=== PATIENT | female | born 1965 | race American Indian/Alaskan Native ===

== ENCOUNTER 2017-05-01 08:03 | Outpatient (CLI) | payer OTHER ==
--- NOTE | 2017-05-01 08:48 | Mammography Report ---
BILATERAL MAMMOGRAM: FINDINGS: The breasts are almost entirely fat (<25% glandular). No mass, distortion, suspicious calcification, or skin change is seen. No significant change compared to prior exams dating back to 2015. CAD was utilized. IMPRESSION: Negative mammogram. There is no mammographic evidence of malignancy. RECOMMENDATION: Follow-up per ACS guidelines. BI-RADS CATEGORY: 1 = Negative ACR BI-RADS MAMMOGRAPHIC CODES: 0 = Needs additional imaging evaluation; 1 = Negative; 2 = Benign; 3 = Probably benign; 4 = Suspicious; 5 = Malignant; 6 = Known biopsy-proven malignancy COMMENT: 1. Dense breast tissue, i.e., adenosis, fibrocystic changes, etc., may obscure an underlying neoplasm. 2. Approximately 10% of cancers are not detected with mammography. 3. A negative mammography report should not delay biopsy if a clinically suspicious mass is present. COMMENT: Patient follow-up letters are generated in [employer].
== END 2017-05-01 08:04 | disposition home or self-care (01) ==
LOC: MAMMO 08:03
PROVIDERS: ATTEND Family Medicine
DX: Z12.31 Encounter for screening mammogram for malignant neoplasm of breast (principal)
CPT/HCPCS: 77067; G0202

== ENCOUNTER 2018-05-01 16:35 | Observation (INO) | payer OTHER ==
[2018-05-01] MEDS ORDERED: PEPCID IV ONE (17:23)
[2018-05-01] MEDS ORDERED: BENTYL IM ONE (17:23)
[2018-05-01] MEDS ORDERED: TORADOL IV ONE (17:23)
[2018-05-01] MEDS ORDERED: NACL 0.9% 1000 ML 1,000 ML IV ONE (17:23)
--- NOTE | 2018-05-01 17:25 | Emergency Department Report ---
Blank Doc - Documentation Documentation: Patient is a 53-year-old -[place] female who is presenting status post colonoscopy with abdominal pain. Patient states that approximately an hour after she got home from her colonoscopy she started having intense pain in epigastrium. Patient states there is no fevers chills nausea vomiting. Patient states pain is 10 out of 10 and is a 7 out of 10 moment. Patient has midepigastric discomfort on palpation and decreased bowel sounds focused physical exam. Patie will have a CT of the abdomen to rule out perforation patient also be given medicine for symptomatic relief nt
[2018-05-01 18:01] LABS: Alanine Aminotransferase 41 units/L (7-56); Albumin 4.1 g/dL (3.9-5); BUN/Creatinine Ratio 14; Blood Urea Nitrogen 11 mg/dL (7-17); Hemolysis Index 42
--- NOTE | 2018-05-01 22:05 | Cat Scan Report ---
FINAL REPORT EXAM: CT ABDOMEN PELVIS W CON HISTORY: Epigastric pain TECHNIQUE: Following IV administration of 100 cc of Omnipaque 300 axial helical imaging was performed through the abdomen and pelvis with sagittal and coronal reformatted images obtained. Delayed axial images were also obtained through the abdomen and pelvis. Comparison: None FINDINGS: The lung bases are without infiltrate, pneumothorax or pleural fluid collection. The heart appears to be enlarged. There is mild intrahepatic and extrahepatic biliary dilatation. The common bowel duct measures approximately 7.8 millimeters in caliber. There are innumerable areas of low-attenuation throughout the liver. Some fit CT criteria for cysts. Others are too small to characterize. The spleen, pancreas, kidneys and adrenal glands are unremarkable in appearance. The gallbladder is moderately to markedly distended and contains numerous gallstones. There is a segment of narrowing of the mid portion of the gallbladder giving the gallbladder a somewhat bilobed appearance. The bowel is normal caliber. The appendix is normal caliber. There is no evidence of pneumoperitoneum or free fluid. The colon is largely air and fluid-filled with air-fluid levels. This may represent changes of an enteritis. There is no evidence of bowel wall thickening. The abdominal aorta is normal caliber. There is no evidence of pathologic intra-abdominal adenopathy by CT size criteria. The urinary bladder is moderately distended and unremarkable in appearance. The uterus and adnexa are unremarkable in appearance. The bony structures are notable for spondylitic change of the lumbar spine. IMPRESSION: 1. Mild intrahepatic and extrahepatic biliary dilatation. 2. The gallbladder is moderately to markedly distended, contains numerous gallstones with a segment of narrowing in the midportion of the gallbladder. 3. Numerous areas of low attenuation within the liver. Some fit CT criteria for cysts. Others are too small to characterize. Comparison with previous imaging studies is recommended. If no prior studies are available for comparison, MRI abdomen would be helpful for further evaluation of the above findings. 4. The heart appears to be enlarged. 5. Spondylitic change lumbar spine.
--- NOTE | 2018-05-01 22:38 | Emergency Department Report ---
ED Abdominal Pain HPI - General Chief Complaint: Abdominal Pain Stated Complaint: CHEST PAIN Time Seen by Provider: 05/01/18 17:19 Source: patient Mode of arrival: Wheelchair Limitations: No Limitations - History of Present Illness Initial Comments: 53-year-old -Citizen Of [place] female comes to the emergency room complaining of severe epigastric pain. Patient states that she had a colonoscopy this morning as scribe gestation and within a few hours she started to have severe epigastric pain. Patient denies any fever no chills but did have nausea no vomiting. Patient put that her pain with triage was 10 out of 10 now since having fluids and pain medicine as a 3 out of 10. Patient reports that she is moving her bowels and movement gas. She has no past medical history. MD Complaint: abdominal pain Severity scale (0 -10): 6 - Related Data Allergies Allergy/AdvReac Type Severity Reaction Status Date / Time cefprozil [From Cefzil] Allergy Rash Unverified 03/10/15 09:06 ED Review of Systems ROS: Stated complaint: CHEST PAIN Other details as noted in HPI ED Past Medical Hx - Past Medical History Previous Medical History?: No - Surgical History Past Surgical History?: No - Social History Smoking Status: Never Smoker Substance Use Type: None ED Physical Exam - General Limitations: No Limitations General appearance: alert, in no apparent distress - Head Head exam: Present: atraumatic, normocephalic - Eye Eye exam: Present: normal appearance - ENT ENT exam: Present: mucous membranes moist - Neck Neck exam: Present: normal inspection, full ROM - Respiratory Respiratory exam: Present: normal lung sounds bilaterally. Absent: respiratory distress - Cardiovascular Cardiovascular Exam: Present: regular rate, normal rhythm. Absent: systolic murmur, diastolic murmur, rubs, gallop - GI/Abdominal GI/Abdominal exam: Present: soft, tenderness, guarding. Absent: distended - Extremities Exam Extremities exam: Present: normal inspection, full ROM - Neurological Exam Neurological exam: Present: alert, oriented X3 - Psychiatric Psychiatric exam: Present: normal affect, normal mood - Skin Skin exam: Present: warm, dry, intact, normal color. Absent: rash ED Course Vital Signs 05/01/18 05/01/18 05/01/18 16:44 18:48 22:54 Temperature 97.8 F Pulse Rate 80 66 Respiratory 18 18 18 Rate Blood Pressure 119/74 Blood Pressure 120/78 [Right] O2 Sat by Pulse 99 99 Oximetry ED Medical Decision Making - Lab Data Result diagrams: 05/01/18 22:15 05/01/18 17:28 - Radiology Data Radiology results: report reviewed, image reviewed FINDINGS: The lung bases are without infiltrate, pneumothorax or pleural fluid collection. The heart appears to be enlarged. There is mild intrahepatic and extrahepatic biliary dilatation. The common bowel duct measures approximately 7.8 millimeters in caliber. There are innumerable areas of low-attenuation throughout the liver. Some fit CT criteria for cysts. Others are too small to characterize. The spleen, pancreas, kidneys and adrenal glands are unremarkable in appearance. The gallbladder is moderately to markedly distended and contains numerous gallstones. There is a segment of narrowing of the mid portion of the gallbladder giving the gallbladder a somewhat bilobed appearance. The bowel is normal caliber. The appendix is normal caliber. There is no evidence of pneumoperitoneum or free fluid. The colon is largely air and fluid-filled with air-fluid levels. This may represent changes of an enteritis. There is no evidence of bowel wall thickening. The abdominal aorta is normal caliber. There is no evidence of pathologic intra-abdominal adenopathy by CT size criteria. The urinary bladder is moderately distended and unremarkable in appearance. The uterus and adnexa are unremarkable in appearance. The bony structures are notable for spondylitic change of the lumbar spine. IMPRESSION: 1. Mild intrahepatic and extrahepatic biliary dilatation. 2. The gallbladder is moderately to markedly distended, contains numerous gallstones with a segment of narrowing in the midportion of the gallbladder. 3. Numerous areas of low attenuation within the liver. Some fit CT criteria for cysts. Others are too small to characterize. Comparison with previous imaging studies is recommended. If no prior studies are available for comparison, MRI abdomen would be helpful for further evaluation of the above findings. 4. The heart appears to be enlarged. 5. Spondylitic change lumbar spine. Transcribed By: ED Dictated By: HERACLIO SPENCE MD Electronically Authenticated By: HERACLIO SPENCE MD Signed Date/Time: 05/01/182200 DD/ 00 TD/TT: 05/01/182200 Critical care attestation.: If time is entered above; I have spent that time in minutes in the direct care of this critically ill patient, excluding procedure time. ED Disposition Clinical Impression: Acute hypokalemia Cholelithiasis Qualifiers: Cholelithiasis location: gallbladder Cholecystitis presence: with cholecystitis Cholecystitis acuity: acute Biliary obstruction: without biliary obstruction Qualified Code(s): K80.00 - Calculus of gallbladder with acute cholecystitis without obstruction Disposition: OP ADMIT IP TO THIS HOSP Is pt being admited?: Yes Does the pt Need Aspirin: No Condition: Stable
[2018-05-02] MEDS ORDERED: SODIUM CHLORIDE FLUSH SYRINGE 10 ML IV PRN (00:04)
[2018-05-02] MEDS ORDERED: ZOFRAN IV PRN (00:04)
[2018-05-02] MEDS ORDERED: MORPHINE IV PRN (00:04)
[2018-05-02] MEDS ORDERED: TYLENOL PO PRN (00:04)
[2018-05-02 00:21] LABS: Hematocrit 37.1 % (30.3-42.9); Mean Corpuscular HGB Conc 35 % (30-34); Mean Corpuscular Hemoglobin 30 pg (28-32); Mean Corpuscular Volume 85 fl (79-97); Platelet Count 239 K/mm3 (140-440); Red Blood Count 4.36 M/mm3 (3.65-5.03); Red Cell Distribution Width 13.7 % (13.2-15.2)
[2018-05-02] MEDS ORDERED: NACL 0.9% 1000 ML 1,000 ML IV SCH (01:00)
--- NOTE | 2018-05-02 02:37 | History and Physical Report ---
History of Present Illness Date of examination: 05/01/18 Date of admission: 05/02/18 00:04 Chief complaint: Chief complaint: Right upper quadrant pain for couple of hours Patient had colonoscopy this morning History of present illness: History of Present Illness: 53-year-old black female with no significant past medical history comes in for severe right upper quadrant and epigastric pain. Patient had colonoscopy this morning. After 2 hours after colonoscopy patient developed severe epigastric and right upper quadrant pain. Pain is about 10 scale of 1-10 intermittent in nature. No fever no chills. This is the first episode of right upper quadrant pain. Concern for perforation after colonoscopy present. Pain is 10 on scale of 1-10. sharp in nature. Past Medical History Previous Medical History?: No Surgical History Past Surgical History?: No Social Historym Smoking Status: Never Smoker Substance Use Type: None Family history: Htn Medications and Allergies Allergies Allergy/AdvReac Type Severity Reaction Status Date / Time cefprozil [From Cefzil] Allergy Rash Unverified 03/10/15 09:06 Active Meds: Active Medications Acetaminophen (Tylenol) 650 mg PO Q4H PRN PRN Reason: Pain MILD(1-3)/Fever >100.5/PADILLA Enoxaparin Sodium (Lovenox) 40 mg SUB[facility]Q [facility] Sodium Chloride (Nacl 0.9% 1000 Ml) 1,000 mls @ 75 mls/hr IV DIRECT CHARAN Morphine Sulfate (Morphine) 2 mg IV Q4H PRN PRN Reason: Pain, Moderate (4-6) Ondansetron HCl (Zofran) 4 mg IV Q8H PRN PRN Reason: Nausea And Vomiting Sodium Chloride (Sodium Chloride Flush Syringe 10 Ml) 10 ml IV BID CHARAN Sodium Chloride (Sodium Chloride Flush Syringe 10 Ml) 10 ml IV PRN PRN PRN Reason: LINE FLUSH Review of Systems All systems: negative Constitutional: no weight loss, no weight gain, no fever, no chills, no sweats, no night sweats Ears, nose, mouth and throat: no hoarseness, no sore throat, no swelling in mouth, no swelling in throat Cardiovascular: no chest pain, no orthopnea, no palpitations, no rapid/ irregular heart beat, no edema, no syncope, no lightheadedness, no shortness of breath Respiratory: no cough, no cough with sputum, no excessive sputum, no hemoptysis , no shortness of breath, no dyspnea on exertion Gastrointestinal: abdominal pain, nausea Genitourinary Female: no menorrhagia, no dysuria, no urinary frequency, no urgency Menstruation: ammenorrhea Musculoskeletal: no neck stiffness, no neck pain, no shooting arm pain, no arm numbness/tingling, no low back pain, no shooting leg pain, no leg numbness/ tingling, no redness of joints Integumentary: no rash, no pruritis, no redness, no sores, no wounds Neurological: no seizures, no syncope Psychiatric: no anxiety, no memory loss, no change in sleep habits, no sleep disturbances Endocrine: no cold intolerance, no heat intolerance, no polyphagia, no excessive thirst, no weight change Hematologic/Lymphatic: no easy bruising, no easy bleeding Allergic/Immunologic: no urticaria, no allergic rhinitis, no wheezing Exam - Physical Exam Narrative exam: Lying in bed comfortably - Constitutional Vitals: Temp Pulse Resp BP Pulse Ox 98.0 F 69 18 118/66 100 05/02/18 01:48 05/02/18 01:48 05/02/18 01:48 05/02/18 01:48 05/02/18 01:48 General appearance: Present: no acute distress, well-nourished - EENT Eyes: Present: PERRL ENT: hearing intact, clear oral mucosa - Neck Neck: Present: supple, normal ROM - Respiratory Respiratory effort: normal Respiratory: bilateral: CTA - Cardiovascular Heart rate: 70 Rhythm: regular Heart Sounds: Present: S1 & S2. Absent: rub, click - Extremities Extremities: no ischemia, pulses intact, pulses symmetrical, No edema Peripheral Pulses: within normal limits - Abdominal General gastrointestinal: Present: soft, non-tender, non-distended, normal bowel sounds, other (nontender right upper quadrant during my exam. Patient lying comfortably) Female genitourinary: Present: normal - Rectal Rectal Exam: deferred - Integumentary Integumentary: Present: clear, warm, dry - Musculoskeletal Musculoskeletal: gait normal, strength equal bilaterally - Psychiatric Psychiatric: appropriate mood/affect, intact judgment & insight - Neurologic Neurologic: CNII-XII intact, moves all extremities - Allied Health Allied health notes reviewed: nursing, case management Results - Labs CBC & Chem 7: 05/01/18 22:15 05/01/18 17:28 Labs: Laboratory Last Values WBC 6.2 K/mm3 (4.5-11.0) 05/01/18 22:15 RBC 4.36 M/mm3 (3.65-5.03) 05/01/18 22:15 Hgb 13.0 gm/dl (10.1-14.3) 05/01/18 22:15 Hct 37.1 % (30.3-42.9) 05/01/18 22:15 MCV 85 fl (79-97) 05/01/18 22:15 MCH 30 pg (28-32) 05/01/18 22:15 MCHC 35 % (30-34) H 05/01/18 22:15 RDW 13.7 % (13.2-15.2) 05/01/18 22:15 Plt Count 239 K/mm3 (140-440) 05/01/18 22:15 Lymph % (Auto) Materials Handling Coordinator 05/01/18 22:15 [place] % (Auto) Materials Handling Coordinator 05/01/18 22:15 Eos % (Auto) Materials Handling Coordinator 05/01/18 22:15 Baso % (Auto) Materials Handling Coordinator 05/01/18 22:15 Lymph # Materials Handling Coordinator 05/01/18 22:15 [place] # Materials Handling Coordinator 05/01/18 22:15 Eos # Materials Handling Coordinator 05/01/18 22:15 Baso # Materials Handling Coordinator 05/01/18 22:15 Seg Neutrophils % Materials Handling Coordinator 05/01/18 22:15 Seg Neutrophils # Materials Handling Coordinator 05/01/18 22:15 Sodium 141 mmol/L (137-145) 05/01/18 17:28 Potassium 3.1 mmol/L (3.6-5.0) L 05/01/18 17:28 Chloride 99.9 mmol/L (98-107) 05/01/18 17:28 Carbon Dioxide 26 mmol/L (22-30) 05/01/18 17:28 Anion Gap 18 mmol/L 05/01/18 17:28 BUN 11 mg/dL (7-17) 05/01/18 17:28 Creatinine 0.8 mg/dL (0.7-1.2) 05/01/18 17:28 Estimated GFR > 60 ml/min 05/01/18 17:28 BUN/Creatinine Ratio 14 % 05/01/18 17:28 Glucose 90 mg/dL (65-100) 05/01/18 17:28 Hemoglobin A1c 5.9 % (4-6) 05/02/18 00:10 Calcium 10.0 mg/dL (8.4-10.2) 05/01/18 17:28 Total Bilirubin 0.50 mg/dL (0.1-1.2) 05/01/18 17:28 AST 67 units/L (5-40) H 05/01/18 17:28 ALT 41 units/L (7-56) 05/01/18 17:28 Alkaline Phosphatase 141 units/L (35-129) H 05/01/18 17:28 Total Protein 7.6 g/dL (6.3-8.2) 05/01/18 17:28 Albumin 4.1 g/dL (3.9-5) 05/01/18 17:28 Albumin/Globulin Ratio 1.2 % 05/01/18 17:28 - Imaging and Cardiology EKG: report reviewed Imaging and Cardiology: CT abdomen IMPRESSION: 1. Mild intrahepatic and extrahepatic biliary dilatation. 2. The gallbladder is moderately to markedly distended, contains numerous gallstones with a segment of narrowing in the midportion of the gallbladder. 3. Numerous areas of low attenuation within the liver. Some fit CT criteria for cysts. Others are too small to characterize. Comparison with previous imaging studies is recommended. If no prior studies are available for comparison, MRI abdomen would be helpful for further evaluation of the above findings. 4. The heart appears to be enlarged. 5. Spondylitic change lumbar spine. Assessment and Plan Advance Directives: Yes (full code) VTE prophylaxis?: Chemical Plan of care discussed with patient/family: Yes - Patient Problems (1) Cholelithiasis Current Visit: Yes Status: Acute Qualifiers: Cholelithiasis location: gallbladder Cholecystitis presence: with cholecystitis Cholecystitis acuity: acute Biliary obstruction: without biliary obstruction Qualified Code(s): K80.00 - Calculus of gallbladder with acute cholecystitis without obstruction Plan to address problem: Gallbladder distended and numerous bowel sounds present Surgery consult initiated IV Zosyn for now Pain control for now (2) Acute hypokalemia Current Visit: Yes Status: Acute Plan to address problem: Supplemented (3) Transaminitis Current Visit: Yes Status: Acute Plan to address problem: Mild Acute hepatitis profile ordered (4) DVT prophylaxis Current Visit: Yes Status: Acute Plan to address problem: heparin 5000 every 12H GI prophylaxis initiated
[2018-05-02] MEDS: KCL 10MEQ/100ML 10 MEQ/100 ML BAG IV SCH ×3 (04:35→13:30)
[2018-05-02] MEDS ORDERED: ZOSYN/NS 4.5GM/100ML 4.5 GM/100 ML VIAL IV SCH (06:00)
[2018-05-02] MEDS ORDERED: SODIUM CHLORIDE FLUSH SYRINGE 10 ML IV SCH (10:00)
[2018-05-02] MEDS ORDERED: LOVENOX SUB-Q SCH (10:00)
--- NOTE | 2018-05-02 12:48 | Progress Note ---
Assessment and Plan Assessment and plan: Cholelithiasis. We will follow up right upper quadrant ultrasound. Surgery consultation pending. Consider HIDA scan. Continue empiric antibiotic for now. Hypokalemia. Replete potassium. Transaminitis. Hepatitis profile pending. DVT prophylaxis. Continue heparin. History Interval history: Patient denies any right upper quadrant pain currently. Hospitalist Physical - Constitutional Vitals: Temp Pulse Resp BP Pulse Ox 98.3 F 74 20 136/78 100 05/02/18 11:09 05/02/18 11:09 05/02/18 11:09 05/02/18 11:09 05/02/18 11:09 General appearance: Present: no acute distress, well-nourished Results - Labs CBC & Chem 7: 05/01/18 22:15 05/01/18 17:28 Labs: Laboratory Last Values WBC 6.2 K/mm3 (4.5-11.0) 05/01/18 22:15 RBC 4.36 M/mm3 (3.65-5.03) 05/01/18 22:15 Hgb 13.0 gm/dl (10.1-14.3) 05/01/18 22:15 Hct 37.1 % (30.3-42.9) 05/01/18 22:15 MCV 85 fl (79-97) 05/01/18 22:15 MCH 30 pg (28-32) 05/01/18 22:15 MCHC 35 % (30-34) H 05/01/18 22:15 RDW 13.7 % (13.2-15.2) 05/01/18 22:15 Plt Count 239 K/mm3 (140-440) 05/01/18 22:15 Lymph % (Auto) Confidential Secretary 05/01/18 22:15 [place] % (Auto) Confidential Secretary 05/01/18 22:15 Eos % (Auto) Confidential Secretary 05/01/18 22:15 Baso % (Auto) Confidential Secretary 05/01/18 22:15 Lymph # Confidential Secretary 05/01/18 22:15 [place] # Confidential Secretary 05/01/18 22:15 Eos # Confidential Secretary 05/01/18 22:15 Baso # Confidential Secretary 05/01/18 22:15 Seg Neutrophils % Confidential Secretary 05/01/18 22:15 Seg Neutrophils # Confidential Secretary 05/01/18 22:15 Sodium 141 mmol/L (137-145) 05/01/18 17:28 Potassium 3.1 mmol/L (3.6-5.0) L 05/01/18 17:28 Chloride 99.9 mmol/L (98-107) 05/01/18 17:28 Carbon Dioxide 26 mmol/L (22-30) 05/01/18 17:28 Anion Gap 18 mmol/L 05/01/18 17:28 BUN 11 mg/dL (7-17) 05/01/18 17:28 Creatinine 0.8 mg/dL (0.7-1.2) 05/01/18 17:28 Estimated GFR > 60 ml/min 05/01/18 17:28 BUN/Creatinine Ratio 14 % 05/01/18 17:28 Glucose 90 mg/dL (65-100) 05/01/18 17:28 Hemoglobin A1c 5.9 % (4-6) 05/02/18 00:10 Calcium 10.0 mg/dL (8.4-10.2) 05/01/18 17:28 Total Bilirubin 0.50 mg/dL (0.1-1.2) 05/01/18 17:28 AST 67 units/L (5-40) H 05/01/18 17:28 ALT 41 units/L (7-56) 05/01/18 17:28 Alkaline Phosphatase 141 units/L (35-129) H 05/01/18 17:28 Total Protein 7.6 g/dL (6.3-8.2) 05/01/18 17:28 Albumin 4.1 g/dL (3.9-5) 05/01/18 17:28 Albumin/Globulin Ratio 1.2 % 05/01/18 17:28
--- NOTE | 2018-05-02 13:15 | Consultation ---
History of Present Illness Consult date: 05/02/18 Chief complaint: abd pain, cholelithiasis - History of present illness History of present illness: 53 yo F presents to ER with c/o severe upper abdominal pain that started 2 hours after having a colonoscopy yesterday at [facility] with Dr. Hilliard. She states the pain was sharp and located in bilateral upper quadrants and epigastric area. She has never had pain like this before. She denies pain with food intake in the past. She denies f/c, cp, sob, n/v, c/d. Her pain has essentially resolved since yesterday. She has been passing flatus. She has no complaints. Ct Scan A/P was performed in the ER to r/o perforation or other causes of abd pain and cholelithiasis was seen, very distended gallbladder and dilated bile ducts. Past History Past Medical History: No medical history Past Surgical History: Other (colonoscopy) Social history: no significant social history Family history: no significant family history Medications and Allergies Allergies Allergy/AdvReac Type Severity Reaction Status Date / Time cefprozil [From Cefzil] Allergy Rash Unverified 03/10/15 09:06 Active Meds: Active Medications Acetaminophen (Tylenol) 650 mg PO Q4H PRN PRN Reason: Pain MILD(1-3)/Fever >100.5/PADILLA Enoxaparin Sodium (Lovenox) 40 mg SUB-Q QDAY [facility] Sodium Chloride (Nacl 0.9% 1000 Ml) 1,000 mls @ 75 mls/hr IV DIRECT CHARAN Piperacillin Sod/Tazobactam Sod (Zosyn/Ns 4.5gm/100ml) 4.5 gm in 100 mls @ 200 mls/hr IV Q8HR CHARAN; Protocol Last Admin: 05/02/18 06:14 Dose: Not Given Morphine Sulfate (Morphine) 2 mg IV Q4H PRN PRN Reason: Pain, Moderate (4-6) Ondansetron HCl (Zofran) 4 mg IV Q8H PRN PRN Reason: Nausea And Vomiting Sodium Chloride (Sodium Chloride Flush Syringe 10 Ml) 10 ml IV BID CHARAN Sodium Chloride (Sodium Chloride Flush Syringe 10 Ml) 10 ml IV PRN PRN PRN Reason: LINE FLUSH Review of Systems All systems: negative (10 PT ROS performed and negative except for that listed in HPI) Exam Vital Signs Temp Pulse Resp BP Pulse Ox 97.8 F 80 18 119/74 99 05/01/18 16:44 05/01/18 16:44 05/01/18 16:44 05/01/18 16:44 05/01/18 16:44 Narrative exam: Gen: AAOx3. NAD ENT: no scleral icterus or conjunctival pallor CV: S1, S2+ Resp: even and unlabored Abd: soft, NT, ND Ext: no c/c/e Results - Labs 05/01/18 22:15 05/01/18 17:28 Abnormal lab results 05/01/18 05/01/18 Range/Units 17:28 22:15 MCHC 35 H (30-34) % Potassium 3.1 L (3.6-5.0) mmol/L AST 67 H (5-40) units/L Alkaline Phosphatase 141 H (35-129) units/L Diabetes panel 05/01/18 05/02/18 Range/Units 17:28 00:10 Sodium 141 (137-145) mmol/L Potassium 3.1 L (3.6-5.0) mmol/L Chloride 99.9 (98-107) mmol/L Carbon Dioxide 26 (22-30) mmol/L BUN 11 (7-17) mg/dL Creatinine 0.8 (0.7-1.2) mg/dL Glucose 90 (65-100) mg/dL Hemoglobin A1c 5.9 (4-6) % Calcium 10.0 (8.4-10.2) mg/dL AST 67 H (5-40) units/L ALT 41 (7-56) units/L Alkaline Phosphatase 141 H (35-129) units/L Total Protein 7.6 (6.3-8.2) g/dL Albumin 4.1 (3.9-5) g/dL Calcium panel 05/01/18 Range/Units 17:28 Calcium 10.0 (8.4-10.2) mg/dL Albumin 4.1 (3.9-5) g/dL Pituitary panel 05/01/18 Range/Units 17:28 Sodium 141 (137-145) mmol/L Potassium 3.1 L (3.6-5.0) mmol/L Chloride 99.9 (98-107) mmol/L Carbon Dioxide 26 (22-30) mmol/L BUN 11 (7-17) mg/dL Creatinine 0.8 (0.7-1.2) mg/dL Glucose 90 (65-100) mg/dL Calcium 10.0 (8.4-10.2) mg/dL Adrenal panel 05/01/18 Range/Units 17:28 Sodium 141 (137-145) mmol/L Potassium 3.1 L (3.6-5.0) mmol/L Chloride 99.9 (98-107) mmol/L Carbon Dioxide 26 (22-30) mmol/L BUN 11 (7-17) mg/dL Creatinine 0.8 (0.7-1.2) mg/dL Glucose 90 (65-100) mg/dL Calcium 10.0 (8.4-10.2) mg/dL Total Bilirubin 0.50 (0.1-1.2) mg/dL AST 67 H (5-40) units/L ALT 41 (7-56) units/L Alkaline Phosphatase 141 H (35-129) units/L Total Protein 7.6 (6.3-8.2) g/dL Albumin 4.1 (3.9-5) g/dL - Imaging CT scan - abdomen: report reviewed, image reviewed CT scan - pelvis: report reviewed, image reviewed US - abdomen: report reviewed, image reviewed Assessment and Plan 53 yo F with abd pain immediately following colonoscopy yesterday, cholelithiasis on CT scan Finding of cholelithiasis likely incidental and pain in upper abdomen likely a result of gaseous distension of the colon due to cscope. Ultrasound reviewed - choleithiasis without evidence of CBD dilatation or gallbladder wall thickening or pericholecystic fluid. Official radiology read pending. Patient without symptoms of abdominal pain at this time. 1. may start reg diet 2. dc IVF 3. may discharge to home after lunch 4. I explained gallstones to the patient and because she has not had symptoms related to this, I do not feel surgery is warranted at this time. I advised her of the symptoms related to gallstones and recommend avoiding fatty, greasy, and fried foods in general. She understands. I gave her the information for my office and she may call or follow up prn. Thank you for this consultation, please call with questions or concerns. D/W Dr. Swenson
--- NOTE | 2018-05-02 13:29 | Discharge Summary ---
Providers - Providers Date of Admission: 05/02/18 00:04 Date of discharge: 05/02/18 Attending physician: SHANIKA TABARES 05/02/18 00:09 Consult to Physician [CONS] Routine Comment: Practioner Cari spoke with Dr. Trotter @ [phone] Consulting Provider: BOOGIE TROTTER Physician Instructions: Reason For Exam: cholelithiasis Primary care physician: MICROBIOLOGY SUPERVISOR Hospitalization Reason for admission: abd pain Condition: Stable Hospital course: 53-year-old female with no significant past medical history presented to the emergency room with severe right upper quadrant and epigastric pain. Patient had colonoscopy morning prior to admission. Patient reportedly 2 hours after colonoscopy developed severe epigastric and right upper quadrant pain. There was a concern for perforation after colonoscopy present. CT scan of the abdomen was obtained which revealed cholelithiasis. Patient was seen by surgery in consultation who felt that the finding of cholelithiasis likely incidental and pain in upper abdomen likely a result of gaseous distension of the colon due to cscope. Ultrasound reviewed by surgery revealed choleithiasis without evidence of CBD dilatation or gallbladder wall thickening or pericholecystic fluid. Official radiology read pending. Patient without symptoms of abdominal pain at this time. Therefore, surgery felt patient could be discharged home and follow-up as an outpatient. Dedicated discharge time 32 minutes. Disposition: DC-01 TO HOME OR SELFCARE Time spent for discharge: 32 Core Measure Documentation - Palliative Care Palliative Care/ Comfort Measures: Not Applicable - Core Measures Any of the following diagnoses?: none Exam - Constitutional Vitals: Temp Pulse Resp BP Pulse Ox 98.3 F 74 20 136/78 100 05/02/18 11:09 05/02/18 11:09 05/02/18 11:09 05/02/18 11:09 05/02/18 11:09 General appearance: Present: no acute distress, well-nourished - EENT Eyes: Present: PERRL ENT: hearing intact, clear oral mucosa - Neck Neck: Present: supple, normal ROM - Respiratory Respiratory effort: normal Respiratory: bilateral: CTA - Cardiovascular Heart Sounds: Present: S1 & S2. Absent: rub, click - Extremities Extremities: pulses symmetrical, No edema Peripheral Pulses: within normal limits - Abdominal General gastrointestinal: Present: soft, non-tender, non-distended, normal bowel sounds Female genitourinary: Present: normal - Integumentary Integumentary: Present: clear, warm, dry - Musculoskeletal Musculoskeletal: gait normal, strength equal bilaterally - Psychiatric Psychiatric: appropriate mood/affect, intact judgment & insight - Neurologic Neurologic: CNII-XII intact, moves all extremities Plan Activity: no restrictions Weight Bearing Status: Full Weight Bearing Diet: regular, other (avoiding fatty, greasy, and fried foods) Follow up with: PRIMARY CARE, [Primary Care Provider] - 3-5 Days BOOGIE TROTTER DO [Staff Physician] - 7 Days
[2018-05-02 16:08] VITALS: BP 104/51
--- NOTE | 2018-05-02 16:21 | Ultrasound Report ---
FINAL REPORT EXAM: US ABDOMEN LIMITED HISTORY: cholelithiasis, abd pain TECHNIQUE: Ultrasound examination of the abdomen PRIORS: AP CT 05/01/2018 FINDINGS: Normal caliber abdominal aorta. Multiple nonspecific smoothly marginated anechoic foci in the liver are suggestive of simple cysts. Multiple shadowing echogenic foci in the region the gallbladder lumen are suggestive of gallstones. Largest measures 21 mm. Gallbladder wall thickness normal at 2.2 mm. Common bile duct diameter within normal limits at 6 mm. Normal-appearing right kidney and visible portion of pancreas. No upper abdominal ascites. IMPRESSION: Findings most compatible with cholelithiasis Liver lesions are suggestive of simple cysts
== END 2018-05-02 16:55 | disposition home or self-care (01) ==
LOC: ED 16:35 → 3B-SURG 05-02 00:04 → INTOOBSV 05-02 00:04
PROVIDERS: ADMIT Internal Medicine; ATTEND Hospitalist
DX: K80.20 Calculus of gallbladder without cholecystitis without obstruction (principal); R74.0 Nonspecific elevation of levels of transaminase and lactic acid dehydrogenase [LDH]; E87.6 Hypokalemia
CPT/HCPCS: 36415; 74177; 76705; 80053; 83036; 85025; 96361; 96365; 96366; 96372; 96375; 99285; G0378; J0500; J1885; J2543; J3480; J7030; Q9967; 96374; J2270

== ENCOUNTER 2018-05-04 07:22 | Outpatient (CLI) | payer OTHER ==
--- NOTE | 2018-05-04 08:21 | Mammography Report ---
BILATERAL MAMMOGRAM: FINDINGS: The breasts are almost entirely fat (<25% glandular). No mass, distortion, suspicious calcification, or skin change is seen. No significant change when compared to exams dating back to April 2016. CAD was utilized. IMPRESSION: Negative mammogram. There is no mammographic evidence of malignancy. RECOMMENDATION: Follow-up per ACS guidelines. BI-RADS CATEGORY: 1 = Negative ACR BI-RADS MAMMOGRAPHIC CODES: 0 = Needs additional imaging evaluation; 1 = Negative; 2 = Benign; 3 = Probably benign; 4 = Suspicious; 5 = Malignant; 6 = Known biopsy-proven malignancy COMMENT: 1. Dense breast tissue, i.e., adenosis, fibrocystic changes, etc., may obscure an underlying neoplasm. 2. Approximately 10% of cancers are not detected with mammography. 3. A negative mammography report should not delay biopsy if a clinically suspicious mass is present. COMMENT: Patient follow-up letters are generated in [facility].
== END 2018-05-04 07:23 | disposition home or self-care (01) ==
LOC: MAMMO 07:22
PROVIDERS: ATTEND Family Medicine
DX: Z12.31 Encounter for screening mammogram for malignant neoplasm of breast (principal); I10 Essential (primary) hypertension; Z88.1 Allergy status to other antibiotic agents
CPT/HCPCS: 77067

== ENCOUNTER 2019-02-14 11:53 | Emergency (ER) | payer SELFPAY ==
--- NOTE | 2019-02-14 12:01 | Emergency Department Report ---
Chief Complaint: Chest Pain Stated Complaint: CHEST PAIN Time Seen by Provider: 02/14/19 11:55 - HPI History of Present Illness: pt presents with epigastric abd pain that began a couple hours ago pressure/pain no N/V/D no fever no SOB no LE edema no recent surgery, no recent travel, no hormone therapy PMHx HTN allergy to cefprozil no smoker occ drinker no drug use MSE screening note: Focused history and physical exam performed. ED Disposition for MSE Condition: Stable
[2019-02-14] MEDS ORDERED: ALUM-MAG HYDROX-SIMETH 200-200-20MG/5ML PO ONE (12:25)
[2019-02-14] MEDS ORDERED: LIDOCAINE VISCOUS 2% PO ONE (12:25)
--- NOTE | 2019-02-14 12:26 | Emergency Department Report ---
ED General Adult HPI - General Chief complaint: Chest Pain Stated complaint: abd pain Time Seen by Provider: 02/14/19 11:55 Source: patient Mode of arrival: Ambulatory Limitations: No Limitations - History of Present Illness Initial comments: Patient is a 53-year-old female that presents emergency room with complaints of epigastric pain/chest pain. Patient states the pain is nonradiating. Patient states pain is 10 out of 10. Patient describes the pain as a burning sensation. Patient states the pain is worse with palpation, movement and eating. Patient states the pain is better with rest and upright positioning. Patient denies shortness of breath and nausea. Patient denies vomiting. Patient denies fever and chills. -: Sudden Location: chest, abdomen Severity scale (0 -10): 10 Quality: burning Consistency: constant Improves with: medication, rest Worsens with: eating, movement Associated Symptoms: denies other symptoms, chest pain. denies: confusion, cough, diaphoresis, fever/chills, headaches, loss of appetite, malaise, nausea/vomiting, rash, seizure, shortness of breath, syncope, weakness Treatments Prior to Arrival: none - Related Data Previous Rx's Medication Instructions Recorded Last Taken Type Esomeprazole Magnesium [NexIUM] 40 mg PO QDAY 15 Days #15 02/14/19 Unknown Rx capsule. Allergies Allergy/AdvReac Type Severity Reaction Status Date / Time cefprozil [From Cefzil] Allergy Rash Unverified 03/10/15 09:06 ED Review of Systems ROS: Stated complaint: CHEST PAIN Other details as noted in HPI Constitutional: denies: chills, fever Eyes: denies: eye pain, eye discharge, vision change ENT: denies: ear pain, throat pain Respiratory: denies: cough, shortness of breath, wheezing Cardiovascular: chest pain. denies: palpitations Endocrine: no symptoms reported Gastrointestinal: abdominal pain. denies: nausea, vomiting, diarrhea Genitourinary: denies: urgency, dysuria, discharge Musculoskeletal: denies: back pain, joint swelling, arthralgia Skin: denies: rash, lesions Neurological: denies: headache, weakness, paresthesias Psychiatric: denies: anxiety, depression Hematological/Lymphatic: denies: easy bleeding, easy bruising ED Past Medical Hx - Past Medical History Previous Medical History?: Yes Hx Hypertension: Yes (Patient) Hx Congestive Heart Failure: No Hx Diabetes: No Hx Asthma: No Hx COPD: No Hx HIV: No - Surgical History Past Surgical History?: No - Family History Family history: hypertension - Social History Smoking Status: Never Smoker Substance Use Type: Prescribed - Medications Home Medications: Home Medications Medication Instructions Recorded Confirmed Last Taken Type Esomeprazole Magnesium [NexIUM] 40 mg PO QDAY 15 Days #15 02/14/19 Unknown Rx capsule. ED Physical Exam - General Limitations: No Limitations General appearance: alert, in no apparent distress - Head Head exam: Present: atraumatic, normocephalic - Eye Eye exam: Present: normal appearance - ENT ENT exam: Present: mucous membranes moist - Neck Neck exam: Present: normal inspection - Respiratory Respiratory exam: Present: normal lung sounds bilaterally. Absent: respiratory distress - Cardiovascular Cardiovascular Exam: Present: regular rate, normal rhythm. Absent: systolic murmur, diastolic murmur, rubs, gallop - GI/Abdominal GI/Abdominal exam: Present: soft, tenderness (severe epigastric tenderness to palpation), normal bowel sounds. Absent: distended, guarding - Extremities Exam Extremities exam: Present: normal inspection - Back Exam Back exam: Present: normal inspection - Neurological Exam Neurological exam: Present: alert, oriented X3 - Psychiatric Psychiatric exam: Present: normal affect, normal mood - Skin Skin exam: Present: warm, dry, intact, normal color. Absent: rash ED Course Vital Signs 02/14/19 02/14/19 02/14/19 12:01 13:12 13:13 Temperature 97.5 F L Pulse Rate 75 85 Respiratory 17 17 Rate Blood Pressure 134/84 Blood Pressure 127/63 [Right] O2 Sat by Pulse 100 100 Oximetry - Reevaluation(s) Reevaluation #1: Discussed all results with patient. Patient states she is pain-free after taking GI cocktail and Zofran. Patient denies nausea and vomiting this time. Patient states that all of her symptoms have relief. Patient denies chest pain. Patient denies abdominal pain. Discussed all results with patient. Patient stable for discharge. Patient will be discharged home with Nexium prescription. Patient given discharge instructions. Patient voiced understanding of discharge instructions. 02/14/19 13:42 ED Medical Decision Making - Lab Data Result diagrams: 02/14/19 12:54 02/14/19 12:54 - EKG Data -: EKG Interpreted by Me EKG shows normal: sinus rhythm, axis, intervals, QRS complexes, ST-T waves Rate: normal - Medical Decision Making Patient is a 53-year-old female presents to emergency room with chest pain/epigastric pain. Patient's findings consistent with gastritis and acid reflux. Patient stable for discharge. All labs unremarkable. Patient's EKG normal. Patient will be discharged home with discharge instructions. Patient given a prescription for Nexium. Patient is to continue her home medication of Zantac and all the rest of her meds and follow up with her primary care. P atient given a GI cocktail and Zofran and responded well and relieved all of her pain. - Differential Diagnosis GERD. Gastritis. Chest pain. Epigastric pain. Critical care attestation.: If time is entered above; I have spent that time in minutes in the direct care of this critically ill patient, excluding procedure time. ED Disposition Clinical Impression: Epigastric pain, GERD with esophagitis Chest pain Qualifiers: Chest pain type: unspecified Qualified Code(s): R07.9 - Chest pain, unspecified Gastritis Qualifiers: Gastritis type: unspecified gastritis Chronicity: acute Gastritis bleeding: without bleeding Qualified Code(s): K29.00 - Acute gastritis without bleeding Disposition: - TO HOME OR SELFCARE Is pt being admited?: No Does the pt Need Aspirin: No Condition: Stable Instructions: Chest Pain (ED), Diet for Ulcers and Gastritis (ED), Gastroesophageal Reflux Disease (ED) Additional Instructions: Patient follow up with primary care in 2-3 days. Patient to return to ER if condition worsens. Patient to take Tylenol when necessary for pain. Patient to rest. Patient to take meds as directed. Continue all home medications. Patient to increase water. Prescriptions: Esomeprazole Magnesium [NexIUM] 40 mg PO QDAY 15 Days #15 capsule. Referrals: PRIMARY CAREMD [Primary Care Provider] - 2-3 Days FARAZ GOODSON MD [Staff Physician] - 2-3 Days Time of Disposition: 13:43
[2019-02-14] MEDS ORDERED: ZOFRAN IV ONE (12:42)
[2019-02-14 13:13] LABS: Basophils % (Auto) 0.5 % (0.0-1.8); Eosinophils # (Auto) 0.1 K/mm3 (0.0-0.4); Eosinophils % (Auto) 2.9 % (0.0-4.3); Hematocrit 38.5 % (30.3-42.9); Hemoglobin 12.7 gm/dl (10.1-14.3); Lymphocytes # (Auto) 1.8 K/mm3 (1.2-5.4); Lymphocytes % (Auto) 48.1 % (13.4-35.0); Mean Corpuscular HGB Conc 33 % (30-34); Mean Corpuscular Volume 86 fl (79-97); Monocytes # (Auto) 0.3 K/mm3 (0.0-0.8); Platelet Count 246 K/mm3 (140-440); Red Blood Count 4.49 M/mm3 (3.65-5.03); Red Cell Distribution Width 13.5 % (13.2-15.2)
[2019-02-14 13:24] LABS: Alanine Aminotransferase 42 units/L (7-56); BUN/Creatinine Ratio 30; Blood Urea Nitrogen 24 mg/dL (7-17); Calcium 9.7 mg/dL (8.4-10.2); Hemolysis Index 49
[2019-02-14 14:23] VITALS: BP 119/65
== END 2019-02-14 14:21 | disposition home or self-care (01) ==
LOC: ED 11:53
DX: K21.0 Gastro-esophageal reflux disease with esophagitis (principal); R07.89 Other chest pain; Z88.8 Allergy status to other drugs, medicaments and biological substances
CPT/HCPCS: 36415; 80053; 83690; 84484; 85025; 93005; 93010; 96374; 99283; J2405

== ENCOUNTER 2019-05-07 14:42 | Outpatient (CLI) | payer OTHER ==
--- NOTE | 2019-05-10 13:32 | Mammography Report ---
BILATERAL DIGITAL SCREENING MAMMOGRAM WITH CAD, 05/07/2019 INDICATION: Routine screening mammography. TECHNIQUE: Digital bilateral 2D mammography was obtained in the craniocaudal and mediolateral obliq ue projections. This examination was interpreted with the benefit of Computer-Aided Detection analysi s. COMPARISON: 05/04/2018, 05/01/2017 FINDINGS: Breast Density: The breasts are almost entirely fatty. There is no evidence of dominant mass, suspicious calcifications or architectural distortion in eithe r breast. No interval change. IMPRESSION: No evidence of malignancy BI-RADS Category 1: Negative. No mammographic evidence of malignancy. Recommend routine screening m ammography in one year. A "normal" or negative report should not discourage follow up or biopsy of a clinically significant f inding. A written summary of these findings will be mailed to the patient. The patient will be entered into a mammography reporting system which will generate a reminder letter for the patient's next appointmen t at the appropriate interval. The [employer] recommends yearly mammograms starting at age 40 and continuing as l yandel as a woman is in good health. Breast MRI is recommended for women with an approximate 20-25% or greater lifetime risk of breast cancer, including women with a strong family history of breast or ova shaista cancer or who have been treated for Hodgkin's disease. Signer Name: Tiana Contreras MD Signed: 05/10/2019 1:28 PM Workstation Name: [id number]
== END 2019-05-07 14:43 | disposition home or self-care (01) ==
LOC: MAMMO 14:42
PROVIDERS: ATTEND Family Medicine
DX: Z12.31 Encounter for screening mammogram for malignant neoplasm of breast (principal); I10 Essential (primary) hypertension
CPT/HCPCS: 77067